=== PATIENT | male | born 1945 | race Asian ===

== ENCOUNTER 2017-02-14 07:33 | Day surgery (SDC) | payer OTHER ==
[2017-02-13 15:20] VITALS: BMI 26.6
[2017-02-14] MEDS ORDERED: PHENYLEPHRINE HCL 10 MG/1 ML SINGLE DOSE VIAL ONE (08:42)
[2017-02-14] MEDS ORDERED: PROPOFOL 20 ML ONE ×4 (08:42)
[2017-02-14 09:30] VITALS: TEMP 97.6
[2017-02-14 10:18] VITALS: BP 107/63; PULSE 68
--- NOTE | 2017-02-15 13:58 | PATH ---
Surgical Pathology Report Patient Name: ANIKET BURROWS [facility]. Rec. #: [id number] /Age/Gender: 1945 (Age: 71) / M Account: [id number] Location: ASU-ENDOSCOPY Taken: 02/14/2017 Received: 02/14/2017 Reported: 02/15/2017 Physicians: Roxana Cifuentes M.D. Specimen(s) Received A: BX HEPATIC FLEXURE POLYP B: BX PROXIMAL TRANSVERSE COLON POLYP Clinical History History of adenoma Diverticulosis, polyps Final Diagnosis A. COLON, HEPATIC FLEXURE, POLYP, BIOPSY: TUBULAR ADENOMA. B. COLON, PROXIMAL TRANSVERSE, POLYP, BIOPSY: TUBULAR ADENOMA. Electronically Signed Eliot Rodriguez M.D. Gross Description A. Received in formalin, labeled "biopsy hepatic flexure" are 2 lopez, irregular portions of soft tissue measuring 0.2 and 0.3 cm in greatest dimension. The specimens are submitted in toto in one cassette. B. Received in formalin, labeled "biopsy proximal transverse colon" is a lopez, irregular portion of soft tissue measuring 0.3 cm in greatest dimension. The specimen is submitted in toto in one cassette. DL/02/14/2017 saudi/02/14/2017
== END 2017-02-14 10:31 | disposition home or self-care (01) ==
LOC: JASU-ENDO 07:33
PROVIDERS: ATTEND Internal Medicine Gastroenterology
PROC: 0DBE8ZX Excision of Large Intestine, Via Natural or Artificial Opening Endoscopic, Diagnostic (ICD-10-PCS; 2017-02-14)
PROC: 0DBL8ZX Excision of Transverse Colon, Via Natural or Artificial Opening Endoscopic, Diagnostic (ICD-10-PCS; principal; 2017-02-14 09:00)
DX: Z86.010 Personal history of colon polyps (principal); K63.5 Polyp of colon; D12.3 Benign neoplasm of transverse colon; K57.30 Diverticulosis of large intestine without perforation or abscess without bleeding
CPT/HCPCS: 88305-TC

== ENCOUNTER 2018-11-21 06:03 | Day surgery (SDC) | payer OTHER ==
[2018-11-18 14:02] VITALS: BMI 25.6
[2018-11-21] MEDS ORDERED: MIDAZOLAM HCL 2 MG/2 ML SINGLE DOSE VIAL ONE ×2 (07:08)
[2018-11-21] MEDS ORDERED: EPINEPHrine 1:1,000 1 MG/1 ML - 30ML VIAL (INJECTION) ONE ×2 (07:10→09:37)
[2018-11-21] MEDS ORDERED: SUCCINYLCHOLINE CHLORIDE 200 MG/10 ML VIAL ONE (07:10)
[2018-11-21] MEDS ORDERED: ONDANSETRON 4 MG/2 ML VIAL ONE ×2 (07:11→13:55)
[2018-11-21] MEDS ORDERED: PROPOFOL 20 ML ONE (07:11)
[2018-11-21] MEDS ORDERED: LIDOCAINE HCL/PF 2% SDV 5ML VIAL ONE (07:11)
[2018-11-21] MEDS ORDERED: DEXAMETHASONE SOD PHOSPHATE 4 MG/1 ML VIAL ONE (07:11)
[2018-11-21] MEDS ORDERED: KETOROLAC TROMETHAMINE 30 MG/1 ML VIAL ONE ×2 (07:11→14:08)
[2018-11-21] MEDS ORDERED: ROPIVACAINE HCL 0.5% 30ML VIAL ONE (07:22)
[2018-11-21] MEDS ORDERED: DEXAMETHASONE SOD PHOSPHATE/PF 10 MG/ML SDV ONE (07:22)
[2018-11-21] MEDS ORDERED: ONDANSETRON 4 MG/2 ML VIAL IVPUSH PRN (07:49)
[2018-11-21] MEDS ORDERED: oxyCODONE HCL 5 MG TABLET PO PRN ×2 (07:49)
[2018-11-21] MEDS ORDERED: LACTATED RINGERS SOLUTION 1,000 ML IV SCH (08:00)
[2018-11-21] MEDS ORDERED: ePHEDrine SULFATE 50 MG/1 ML AMPULE ONE (08:30)
[2018-11-21] MEDS ORDERED: ceFAZolin SODIUM 1 GM VIAL ONE (08:30)
[2018-11-21] MEDS ORDERED: LIDOCAINE 1%/EPI 1:100000 (20 ML MULTI DOSE VIAL) ONE (09:00)
[2018-11-21] MEDS ORDERED: METOPROLOL TARTRATE 5 MG/5 ML VIAL ONE (12:02)
[2018-11-21] MEDS ORDERED: LIDOCAINE 1%/EPI 1:100000 (20 ML MULTI DOSE VIAL) IJ ONE (12:42)
[2018-11-21] MEDS ORDERED: ONDANSETRON 4 MG/2 ML VIAL IVPUSH ONE (14:00)
[2018-11-21] MEDS ORDERED: KETOROLAC TROMETHAMINE 30 MG/1 ML VIAL IVPUSH ONE (14:15)
[2018-11-21] MEDS ORDERED: oxyCODONE HCL 5 MG TABLET ONE (14:31)
--- NOTE | 2018-11-21 14:52 | OP ---
DATE OF OPERATION: 11/21/2018 PREOPERATIVE DIAGNOSIS: Right shoulder rotator cuff tear, impingement, biceps tendinosis. POSTOPERATIVE DIAGNOSIS: Right shoulder rotator cuff tear, impingement, biceps tendinosis. PROCEDURE: Right shoulder arthroscopy with repair of subscapularis, supraspinatus, infraspinatus, subacromial decompression, biceps tenodesis. SURGEON: Rowdy Morris MD LAW FIRM ADMINISTRATOR: JENAE Hurst whose skillful assistance was necessary for the safe and timely performance of this procedure. Ms. Gross was able to help in limb positioning, driving the camera, passage of sutures, insertion of orthopaedic fixation hardware as well as retraction during the biceps portion of the case. ANESTHESIA: Regional plus general. POSTOPERATIVE CONDITION: Stable. COMPLICATIONS: None. IMPLANTS: [employer] Q-Fix anchor x3, [employer] Multifix anchor x1, [employer] SwiveLock x1. INDICATIONS: This is a 73-year-old gentleman who had been suffering from shoulder pain and weakness. He was found to have a rotator cuff tear on MRI. Treatment options including nonoperative versus operative management were reviewed. Operative risks were reviewed in detail including bleeding, infection, neurovascular injury, need for further surgery, postoperative pain and stiffness, re-rupture or failure to heal, permanent loss of motion, permanent loss of strength. We discussed medical risks such as heart attack, stroke, DVT, PE, and . I reviewed the preoperative use of antibiotics and DVT prophylaxis. I discussed the prolonged rehabilitation following surgery. I addressed all of the patient's and his 's questions. He voiced understanding and elected to proceed. DESCRIPTION OF PROCEDURE: The patient was brought to the operating room after administration of a regional block in the preoperative holding area. General anesthetic was then administered. He was then placed in the beach chair position careful to pad all of the bony prominences. The right upper extremity was then examined demonstrating full range of motion and good stability. The right shoulder was then prepped and draped in the usual sterile fashion. A preoperative dose of antibiotics was given, and the usual time-out procedure was performed. At this point, standard portals were marked out on the skin. An 11 blade was used to establish the posterior portal. The arthroscope was now passed into the glenohumeral joint. Examination of the glenohumeral joint demonstrated some mild wear of the articular surface of the glenoid. There was moderate, diffuse thinning of the articular surface of the humerus. The labrum demonstrated diffuse but mild degenerative change. The biceps was extremely thickened and frayed consistent with high-grade tendinosis. There is significant synovitis about the shoulder with somewhat limited visibility at this point. The anterior portal was established under spinal needle localization. A shaver was used to debride the synovitis, and this provided better visualization. Here, an upper border tear of the subscapularis was seen. The supraspinatus and infraspinatus were both thrown off the greater tuberosity, although the posterior portion of the infraspinatus was still attached. Attention was now turned to the biceps. Here, a tenotomy was performed. The base was smoothed down to a smooth surface. The arthroscope was now directed towards the subscapularis. Some of the tissue about the subscapularis was debrided to provide adequate visualization. Cannula was inserted to allow for suture placement. A Firstpass was used to place a luggage tag-type suture on the upper border of the subscapularis. A second luggage tag was placed here as well. Shaver was used to debris a footprint along the lesser tuberosity. The sutures were now loaded into a SwiveLoc anchor. The SwiveLoc anchor was punched and then inserted securing down the sutures. The shoulder was passed through a range of motion. The subscapularis was now seen to be stable. Attention was now turned into the subacromial space. The camera was withdrawn and placed here. The subacromial space demonstrated high-grade impingement morphology. A type 3 acromion was noted. Utilizing the shaver, subacromial decompression was performed. The edge of the rotator cuff was debrided. The tear was now mobilized by using electrocautery to free up the space both above and below the rotator cuff. The greater tuberosity was now debrided using the shaver down to bleeding bone. The medial row Q-Fix was now inserted more posteriorly. Sutures were then passed through individually through the cuff utilizing the Firstpass suture passer. These were then tied along the medial row. A 2nd Q-fix was inserted more anteriorly. The same procedure was repeated passing all of the sutures and then tying in medial row. The sutures were then passed in a crossing pattern. For the more posterior anchor, a punch was used and then sutures were loaded into a SwiveLoc anchor. SwiveLoc was then inserted securing down the lateral row. The procedure was then repeated albeit using a Multifix anchor more anteriorly. This firmly secured down the edges of the rotator cuff. There was a small dog ear in the middle, and the sutures from the lateral row SwiveLoc were retrieved and passed in horizontal mattress fashion to secure down the fragment. Cuff was now passed throughout a range of motion and found to be stable. Attention was now turned to the biceps. The camera was removed from the shoulder. All of the portals were sutured. The shoulder was otherwise reprepped with chlorhexidine. Incision was now planned out over the pectoralis major tendon. This was carried down through the skin through subcutaneous tissue after administration of local 1% lidocaine with epinephrine. Blunt spreading was used to expose the fascia over the pectoralis. Finger dissection was now under the pectoralis and used to identify the biceps tendon. The biceps tendon was now retrieved out the anterior wound. The bicipital curve itself was roughened using arthroscopic rasp. The Q-Fix anchor was now drilled into the superior portion of the groove and then seated. The sutures were then whipstitched through the more recent healthy appearing portion of the biceps tendon distally. The tendinotic tissue was excised. Utilizing zeny technique, the whipstitch sutures were now used to pull off the tendon to the anchor securing it firmly in place. The wound was now copiously irrigated. The skin was approximated using vertical mattress 4-0 nylon suture. Sterile dressings were placed. The patient was extubated and transferred to the recovery room in stable condition. Rebecca [id number]
[2018-11-21 15:25] VITALS: TEMP 97.5
[2018-11-21] MEDS ORDERED: KETOROLAC TROMETHAMINE 30 MG/1 ML VIAL IM ONE (15:41)
[2018-11-21 16:41] VITALS: BP 115/67; PULSE 96
== END 2018-11-21 16:50 | disposition home or self-care (01) ==
LOC: FASU 06:03
PROVIDERS: ATTEND Orthopaedic Surgery Sports Medicine
PROC: 0LQ14ZZ Repair Right Shoulder Tendon, Percutaneous Endoscopic Approach (ICD-10-PCS; principal; 2018-11-21 08:56)
PROC: 0LS14ZZ Reposition Right Shoulder Tendon, Percutaneous Endoscopic Approach (ICD-10-PCS; 2018-11-21 08:56)
PROC: 0RNJ4ZZ Release Right Shoulder Joint, Percutaneous Endoscopic Approach (ICD-10-PCS; 2018-11-21 08:56)
DX: M75.121 Complete rotator cuff tear or rupture of right shoulder, not specified as traumatic (principal); M75.41 Impingement syndrome of right shoulder; M75.21 Bicipital tendinitis, right shoulder
CPT/HCPCS: 94760